=== PATIENT | male | born 1935 | race Caucasian/White ===

== ENCOUNTER 2021-09-19 15:41 | Inpatient (IN) | payer MEDICARE ==
[2021-09-19] MEDS ORDERED: Bisacodyl 10 MG SUPP PR PRN (18:16)
[2021-09-19] MEDS ORDERED: Cyclobenzaprine 10 MG TAB PO PRN (18:16)
[2021-09-19] MEDS ORDERED: Acetaminophen/Codeine 30-300mg Tablet PO PRN (18:16)
[2021-09-19] MEDS ORDERED: NORCO 7.5/325 PO PRN (18:26)
[2021-09-19] MEDS: HYDROcodone/Acetaminophen 10/325 mg Tablet PO PRN (20:29)
[2021-09-19] MEDS: Doxepin HCl 10 MG CAP PO SCH (20:31)
[2021-09-19] MEDS: Pramipexole Di-HCl 0.25 MG TAB PO SCH (20:31)
[2021-09-19] MEDS ORDERED: Ondansetron ODT 4 MG TAB PO PRN (20:31)
[2021-09-19] MEDS: Amitriptyline HCl 25 MG TAB PO SCH (20:32)
[2021-09-20] MEDS ORDERED: FLU VACC QS2021-22(65YR UP)/PF 240 MCG/0.7 ML SYRINGE IM ONE (09:00)
[2021-09-20] MEDS: HYDROcodone/Acetaminophen 10/325 mg Tablet PO PRN ×2 (10:08→20:23)
[2021-09-20] MEDS: Docusate Sodium 100 MG/10 ML UDCUP PO SCH (10:08)
[2021-09-20] MEDS: Pramipexole Di-HCl 0.25 MG TAB PO SCH (20:23)
[2021-09-20] MEDS: Amitriptyline HCl 25 MG TAB PO SCH (20:23)
[2021-09-20] MEDS: Doxepin HCl 10 MG CAP PO SCH (20:26)
[2021-09-20] MEDS ORDERED: HYDROcodone/Acetaminophen 10/325 mg Tablet PO SCH (23:45)
[2021-09-20 23:49] LABS: SARS-CoV-2 PCR by NAA Not Detected (NotDetected)
[2021-09-21] MEDS: HYDROcodone/Acetaminophen 10/325 mg Tablet PO PRN (08:20)
[2021-09-21] MEDS: Docusate Sodium 100 MG/10 ML UDCUP PO SCH (08:22)
[2021-09-21] MEDS ORDERED: Milk Of Magnesia 30 ML UDCUP PO PRN (13:05)
[2021-09-21] MEDS ORDERED: Polyethylene Glycol 3350 17 GM Packet PO SCH (13:15)
[2021-09-21] MEDS: Pramipexole Di-HCl 0.25 MG TAB PO SCH (20:36)
[2021-09-21] MEDS: Amitriptyline HCl 25 MG TAB PO SCH (20:36)
[2021-09-21] MEDS: Doxepin HCl 10 MG CAP PO SCH (20:37)
[2021-09-22] MEDS: Polyethylene Glycol 3350 17 GM Packet PO SCH (09:08)
[2021-09-22] MEDS: Docusate Sodium 100 MG/10 ML UDCUP PO SCH (09:09)
[2021-09-22] MEDS: Doxepin HCl 10 MG CAP PO SCH (20:18)
[2021-09-22] MEDS: Pramipexole Di-HCl 0.25 MG TAB PO SCH (20:18)
[2021-09-22] MEDS: Amitriptyline HCl 25 MG TAB PO SCH (20:18)
[2021-09-23] MEDS: HYDROcodone/Acetaminophen 10/325 mg Tablet PO PRN (00:10)
[2021-09-23] MEDS: Docusate Sodium 100 MG/10 ML UDCUP PO SCH (08:45)
[2021-09-23] MEDS: Polyethylene Glycol 3350 17 GM Packet PO SCH (08:45)
[2021-09-23] MEDS: Amitriptyline HCl 25 MG TAB PO SCH (20:41)
[2021-09-23] MEDS: Doxepin HCl 10 MG CAP PO SCH (20:41)
[2021-09-23] MEDS: Pramipexole Di-HCl 0.25 MG TAB PO SCH (20:41)
[2021-09-23] MEDS ORDERED: Hyoscyamine Sulfate SL 0.125 mg Tablet SL PRN (22:22)
[2021-09-24] MEDS: HYDROcodone/Acetaminophen 10/325 mg Tablet PO PRN ×2 (01:10→23:39)
[2021-09-24] MEDS: Polyethylene Glycol 3350 17 GM Packet PO SCH (09:32)
[2021-09-24] MEDS: Docusate Sodium 100 MG/10 ML UDCUP PO SCH (09:32)
[2021-09-24] MEDS: Pramipexole Di-HCl 0.25 MG TAB PO SCH (20:30)
[2021-09-24] MEDS: Amitriptyline HCl 25 MG TAB PO SCH (20:30)
[2021-09-24] MEDS: Doxepin HCl 10 MG CAP PO SCH (20:30)
[2021-09-24 23:35] VITALS: BMI 32.8
[2021-09-25] MEDS: Polyethylene Glycol 3350 17 GM Packet PO SCH (09:14)
[2021-09-25] MEDS: Docusate Sodium 100 MG/10 ML UDCUP PO SCH (09:14)
[2021-09-25] MEDS: Doxepin HCl 10 MG CAP PO SCH (20:33)
[2021-09-25] MEDS: Pramipexole Di-HCl 0.25 MG TAB PO SCH (20:33)
[2021-09-25] MEDS: Amitriptyline HCl 25 MG TAB PO SCH (20:33)
[2021-09-26] MEDS: Docusate Sodium 100 MG/10 ML UDCUP PO SCH (08:37)
[2021-09-26] MEDS: Polyethylene Glycol 3350 17 GM Packet PO SCH (08:37)
[2021-09-26] MEDS ORDERED: Acetaminophen 325 MG TAB PO PRN (11:45)
[2021-09-26] MEDS ORDERED: HYDROcodone/Acetaminophen 5/325 mg Tablet PO PRN (11:46)
[2021-09-26] MEDS: Doxepin HCl 10 MG CAP PO SCH (21:01)
[2021-09-26] MEDS: Pramipexole Di-HCl 0.25 MG TAB PO SCH (21:01)
[2021-09-26] MEDS: Amitriptyline HCl 25 MG TAB PO SCH ×2 (21:01→21:02)
[2021-09-27 05:03] VITALS: BP 129/71; TEMP 98.5
[2021-09-27] MEDS: Docusate Sodium 100 MG/10 ML UDCUP PO SCH (10:00)
[2021-09-27] MEDS: Polyethylene Glycol 3350 17 GM Packet PO SCH (10:00)
[2021-09-27 19:10] LABS: SARS-CoV-2 PCR by NAA Not Detected (NotDetected)
== END 2021-09-27 11:30 | disposition home or self-care (01) | DRG 948 ==
LOC: UNDOADMIN 15:41 → BURMED 15:41 → UNDOADMIN 18:05 → BURMED 18:05
PROVIDERS: ADMIT Family Medicine; ATTEND Family Medicine
DX: R53.1 Weakness (principal); K59.00 Constipation, unspecified; Z20.822 Contact with and (suspected) exposure to COVID-19; F32.A Depression, unspecified; G25.81 Restless legs syndrome; F03.90 Unspecified dementia, unspecified severity, without behavioral disturbance, psychotic disturbance, mood disturbance, and anxiety; R26.89 Other abnormalities of gait and mobility
CPT/HCPCS: U0003; U0005